=== PATIENT | female | born 1945 | race Caucasian/White ===

== ENCOUNTER 2018-11-25 20:09 | Emergency (ER) | payer OTHER ==
[2018-11-25 20:25] VITALS: PULSE 65; TEMP 97.7; BMI 25.4
[2018-11-25 22:00] VITALS: BP 132/70
--- NOTE | 2018-11-26 02:03 | PDOC ---
Documentation entered by Tuyet Oates SCRIBE, acting as scribe for Sasha Kirk MD. Sasha Kirk MD: This documentation has been prepared by the Иван nieves Adrianna, SCRIBE, under my direction and personally reviewed by me in its entirety. I confirm that the documentation accurately reflects all work, treatment, procedures, and medical decision making performed by me. History of Present Illness - General Chief Complaint: Injury Stated Complaint: FELL Time Seen by Provider: 11/25/18 20:10 - History of Present Illness Initial Comments: The patient is a 73 year old female, with a significant PMH of, who presents to the ED for evaluation of jaw pain prior to arrival (45 minutes prior). Patient notes she has been preparing for an event and has boxes all over her place, which she ultimately tripped over. Patient reports hitting the right side of her jaw on the edge of her coffee table. She notes feeling disoriented and shaky after the fall, with a laceration just underneath the right side of her jaw. Patient states that the left side of her jaw feels out of place and her teeth do not feel like they are lining up when she closes her mouth. She denies any LOC or head/neck pain after the fall. Denies history of TMJ, chest pain, SOB, abdominal pain, headache. Allergies: NKA, NKDA Surgical History: None reported Social History: Former smoker (quit 25 years ago). Social EtOH use. Denies illicit drug use PCP: Dr. Ly Past History - Past Medical History Allergies/Adverse Reactions: Allergies Allergy/AdvReac Type Severity Reaction Status Date / Time No Known Drug Allergies Allergy Verified 11/25/18 20:17 Home Medications: Ambulatory Orders Raloxifene HCl [Evista] 60 mg PO DAILY 08/12/17 Calcium Carbonate/Vitamin D3 [Calcium 600 + Vit D Tablet] 1 each PO DAILY Glucosa Sandhu 2Kcl/Chondroitin Sandhu [Glucosamine & Chondroitin Cap] 1 each PO DAILY 11/25/18 Juice Plus 11/25/18 Anemia: No Asthma: No Cancer: No Cardiac Disorders: No CVA: No COPD: No CHF: No Dementia: No Diabetes: No GI Disorders: No Disorders: No HTN: No Hypercholesterolemia: No Liver Disease: No Seizures: No Thyroid Disease: No - Surgical History Abdominal Surgery: No Appendectomy: No Cardiac Surgery: No Cholecystectomy: No Lung Surgery: No Neurologic Surgery: No Orthopedic Surgery: No - Psycho Social/Smoking Cessation Hx Smoking History: Former smoker Have you smoked in the past 12 months: No If you are a former smoker, when did you quit?: 1993 Hx Alcohol Use: Yes (2 GLASSES WINE/DAILY) Drug/Substance Use Hx: No Substance Use Type: Alcohol Hx Substance Use Treatment: No Review of Systems - Review of Systems Comments:: General: No fevers or chills, no weakness, no weight loss HEENT: +Right jaw pain and laceration. +Left side of jaw feels out of place and teeth are not lining up. No change in vision. No sore throat. No ear pain CardioVascular: No chest pain or shortness of breath Respiratory: No cough, or wheezing. Gastrointestinal: no nausea, vomiting, diarrhea or constipation, No rectal bleeding Genitourinary: No dysuria, hematuria, or frequency Musculoskeletal: No joint or muscle pain or swelling Neurologic: No headache, vertigo, dizziness or loss of consciousness Psychiatric: no depression Skin: No rashes or easy bruising Endocrine: no increased thirst or abnormal weight change Allergic: no skin or latex allergy All other systems reviewed and normal *Physical Exam - Vital Signs Last Vital Signs Temp Pulse Resp BP Pulse Ox 97.7 F 65 16 150/96 98 11/25/18 20:10 11/25/18 20:10 11/25/18 20:10 11/25/18 20:10 11/25/18 20:10 - Physical Exam Comments: General: Well-nourished well-developed individual, no acute distress HEENT: +Mild edema, faint ecchymosis, and mildly tender right mandible. No step- off palpated. +Mild occlusion evident on opening of the jaw. +Audible click heard on opening of the jaw with moderate tenderness at the left mandibular ramus. No obvious malocclusion of the teeth seen on exam. Throat: Normal, tonsils normal, no erythema or exudate Neck: Supple, no meningeal signs, no lymphadenopathy Eyes: Pupils equal reactive and round, extraocular motion intact Chest: Nontender to palpation Cardiac: S1-S2 normal, regular rate and rhythm, no murmurs rubs or gallops Respiratory: Lungs clear to auscultation bilateral Abdomen: Soft, nondistended, normal bowel sounds, nontender to palpation diffusely Extremities: Warm, dry, no cyanosis, clubbing, or edema Skin: +Nonbleeding superficial linear 1.5cm laceration below the anterior portion of the right mandible. No rashes Neuro: Alert and oriented x3, nonfocal exam, grossly intact, normal gait Psych: Normal mood and affect ED Treatment Course - RADIOLOGY Radiology Studies Ordered: Category Date Time Status FACIAL BONES CT W/O CONTRAST [CT] Stat CT Scan 11/25/18 20:[address] WITHOUT CONTRAST [CT] Stat CT Scan 11/25/18 20:27 Taken Radiograph Interpretation: EXAM: CT head without contrast and CT face without contrast REASON FOR EXAM: Fall with head trauma FINDINGS: CT head: There is cerebral atrophy. Mild chronic microvascular ischemic changes are noted. No acute intracranial hemorrhage or acute infarction. CT face: No acute maxillofacial fracture. No acute intraorbital injury. No significant sinus disease. Reported By: Rock Nascimento MD 11/25/2018 21:38 EST Medical Decision Making - Medical Decision Making As noted above, this 73-year-old woman without significant past medical history presents with bilateral jaw pain and superficial laceration after a fall in her home few hours prior to presentation: Patient has boxes and other material around her home in preparation for a shayan event. The patient tripped over a box, striking anterior portion of her right mandible against her coffee table. There was no LOC. She sustained small laceration under her chin and was temporarily lightheaded after the injury. She developed discomfort in her left jaw and sensation of malocclusion of her teeth and presents here for evaluation. Exam as noted. Although no step-offs or marked tenderness is noted on mandibular exam, to fully rule out subtle fracture of the mandible (and also to rule out associated intracranial acute pathology/injury) noncontrast facial bone CT as well as noncontrast head CT will be performed. CT images interpreted by Imaging operations management professionals and noted above. Results discussed with the patient. Patient states that she has decreased discomfort in the left mandibular area and no longer has the sensation of malocclusion. Clinical presentation most consistent with soft tissue contusion/ sprain of the mandible. Using sterile technique, partial-thickness laceration of the chin cleansed with sterile normal saline and patted dry. Wound edges held in close approximation and closure obtained using skin adhesive. Patient uses ibuprofen/acetaminophen as needed for pain. Soft diet and elevation of hand has been recommended to her. The patient already has an oral surgeon and ear nose and throat doctor with whom she can follow-up if she has persistent pain or any recurrent malocclusion sensation. If she has persistent severe symptoms she should return to the emergency room Discharge - Discharge Information Problems reviewed: Yes Clinical Impression/Diagnosis: Superficial laceration of face Jaw sprain Qualifiers: Encounter type: initial encounter Qualified Code(s): S03.40XA - Sprain of jaw, unspecified side, initial encounter Contusion of jaw Qualifiers: Encounter type: initial encounter Qualified Code(s): S00.83XA - Contusion of other part of head, initial encounter Condition: Stable Disposition: HOME - Follow up/Referral Referrals: Zenia Ly MD [Primary Care Provider] - - Patient Discharge Instructions Patient Printed Discharge Instructions: DI for Laceration Repair With Dermabond , DI for Contusion Additional Instructions: Keep head elevated on extra pillow tonight Motrin/Tylenol as needed for pain Soft diet for the next 3 to 4 days Return to ER if you have severe pain Follow-up with your oral surgeon or ENT doctor if you have recurrent jaw discomfort - Post Discharge Activity
== END 2018-11-25 22:03 | disposition home or self-care (01) ==
LOC: FER 20:09
PROC: 0HQ1XZZ Repair Face Skin, External Approach (ICD-10-PCS; principal; 2018-11-25)
DX: S01.81XA Laceration without foreign body of other part of head, initial encounter (principal); S03.40XA Sprain of jaw, unspecified side, initial encounter; W22.8XXA Striking against or struck by other objects, initial encounter; Y93.89 Activity, other specified; Y92.89 Other specified places as the place of occurrence of the external cause; Z87.891 Personal history of nicotine dependence
CPT/HCPCS: 70450-TC; 70486-TC; 99282-25

== ENCOUNTER 2021-04-22 06:05 | Day surgery (SDC) | payer OTHER ==
[2021-04-22] MEDS: PHENYLEPHRINE 2.5% OPHTH SOLN 15 ML BOTTLE ONE ×3 (06:35→06:45)
[2021-04-22] MEDS: TROPICAMIDE 1% OPHTH SOLN 15 ML BOTTLE ONE ×3 (06:35→06:45)
[2021-04-22] MEDS: CIPROFLOXACIN 0.3% EYE DROPS 5 ML BOTTLE ONE ×3 (06:35→06:45)
[2021-04-22] MEDS: CYCLOPENTOLATE 2% OPHTH SOLN 2 ML BOTTLE ONE ×3 (06:35→06:45)
[2021-04-22 06:52] VITALS: BMI 24.5
[2021-04-22] MEDS ORDERED: BSS (NA/CA/MG/K) BALANCED SALT SOLUTION OPHTH SOLN 15 ML BOTTLE ONE (07:20)
[2021-04-22] MEDS ORDERED: EPINEPHrine/PF 1 MG/1 ML (1:1,000) AMPULE ONE (07:20)
[2021-04-22] MEDS ORDERED: TETRACAINE 0.5% OPHTH SOLN 2 ML BOTTLE ONE (07:20)
[2021-04-22] MEDS ORDERED: LIDOCAINE 1% P/F 10 MG/ML VIAL ONE (07:20)
[2021-04-22] MEDS ORDERED: CARBACHOL 0.01% INTRA-OCULAR 1.5 ML VIAL ONE (07:21)
[2021-04-22] MEDS ORDERED: NEO/POLYMYX B SULF/DEXAMETH OPHTHALMIC 5ML BOTTLE ONE (07:21)
[2021-04-22] MEDS ORDERED: MIDAZOLAM HCL 2 MG/2 ML SINGLE DOSE VIAL ONE (07:56)
[2021-04-22 08:36] VITALS: TEMP 98.4
[2021-04-22 08:56] VITALS: BP 112/61; PULSE 72
== END 2021-04-22 10:00 | disposition home or self-care (01) ==
LOC: FASU 06:05 → EDSTATUS 09:00 → FASU 10:00
PROVIDERS: ATTEND Ophthalmology
PROC: 08RJ3JZ Replacement of Right Lens with Synthetic Substitute, Percutaneous Approach (ICD-10-PCS; principal; 2021-04-22 08:02)
DX: H26.8 Other specified cataract (principal)

== ENCOUNTER 2021-05-20 07:31 | Day surgery (SDC) | payer OTHER ==
[2021-05-15 13:24] VITALS: BMI 24.5
[2021-05-20] MEDS: CIPROFLOXACIN 0.3% EYE DROPS 5 ML BOTTLE ONE ×3 (08:45→08:55)
[2021-05-20] MEDS: CYCLOPENTOLATE 2% OPHTH SOLN 2 ML BOTTLE ONE ×3 (08:45→08:55)
[2021-05-20] MEDS: TROPICAMIDE 1% OPHTH SOLN 15 ML BOTTLE ONE ×3 (08:45→08:55)
[2021-05-20] MEDS: PHENYLEPHRINE 2.5% OPHTH SOLN 15 ML BOTTLE ONE ×3 (08:45→08:55)
[2021-05-20] MEDS ORDERED: LIDOCAINE 1% P/F 10 MG/ML VIAL ONE (09:58)
[2021-05-20] MEDS ORDERED: TETRACAINE 0.5% OPHTH SOLN 2 ML BOTTLE ONE (09:58)
[2021-05-20] MEDS ORDERED: NEO/POLYMYX B SULF/DEXAMETH OPHTHALMIC 5ML BOTTLE ONE (09:58)
[2021-05-20] MEDS ORDERED: BSS (NA/CA/MG/K) BALANCED SALT SOLUTION OPHTH SOLN 15 ML BOTTLE ONE (09:58)
[2021-05-20] MEDS ORDERED: CARBACHOL 0.01% INTRA-OCULAR 1.5 ML VIAL ONE (09:58)
[2021-05-20] MEDS ORDERED: MIDAZOLAM HCL 2 MG/2 ML SINGLE DOSE VIAL ONE (10:16)
[2021-05-20 10:58] VITALS: PULSE 78; TEMP 97.7
[2021-05-20 11:42] VITALS: BP 97/68
== END 2021-05-20 11:55 | disposition home or self-care (01) ==
LOC: FASU 07:31
PROVIDERS: ATTEND Ophthalmology
PROC: 08RK3JZ Replacement of Left Lens with Synthetic Substitute, Percutaneous Approach (ICD-10-PCS; principal; 2021-05-20 10:19)
DX: H26.8 Other specified cataract (principal)
CPT/HCPCS: 66984; V2632